=== PATIENT | female | born 1965 | race Caucasian/White ===

== ENCOUNTER 2019-04-09 15:10 | Emergency (ER) | payer MEDICAID, OTHER ==
--- NOTE | 2019-04-09 15:42 | EDM.PDOC ---
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 Has had good results with triamcinolone cream in the past. Has no other concerns currently. Onset: Gradual Onset Date: 04/07/19 Duration: Day(s):, Getting Worse Location: Reports: Upper Extremity, Left, Upper Extremity, Right Quality: Reports: Other (itching) Severity: Moderate Improves with: Reports: Medication Worsens with: Reports: Other (? horse grain that she soaks in water using bare hands.) Context: Reports: Other (see HPI) Associated Symptoms: Reports: No Other Symptoms Treatments CRUISE AGENT: Reports: Other (see below) (none) - Related Data Home Meds: Home Meds Estradiol 1 mg PO DAILY 04/09/19 [History] Levothyroxine [Synthroid] 50 mcg PO ACBREAKFAST 04/09/19 [History] Progesterone, Micronized [Progesterone] 100 mg PO DAILY 04/09/19 [History] Triamcinolone Acetonide [Triamcinolone Acetonide 0.1% Crm] 1 applic TOP BID PRN #80 gm 04/09/19 [Rx] Triamcinolone Acetonide [Triamcinolone Acetonide 0.1% Crm] 1 dose TOP ASDIRECTED 04/09/19 [History] Past Medical History [employer] DEVELOPER History: Reports: Musculoskeletal History: Reports: Arthritis Endocrine/Metabolic History: Reports: Hypothyroidism Dermatologic History: Reports: Other (See Below) - Past Surgical History Head Surgeries/Procedures: Reports: None Musculoskeletal Surgical History: Reports: Shoulder Surgery Dermatological Surgical History: Reports: None ED ROS GENERAL - Review of Systems Review Of Systems: ROS reveals no pertinent complaints other than HPI. Skin: Reports: Pruritis (hands/wrist bilaterally), Rash, Erythema (hands and wrist only) ED EXAM, SKIN/RASH Exam: See Below Exam Limited By: No Limitations General Appearance: Alert, WD/WN, No Apparent Distress Extremities: Other (rash both hands) Neurological: Alert, Oriented, CN II-XII Intact, Normal Cognition, No Motor/ Sensory Deficits Psychiatric: Normal Affect, Normal Mood Skin: Warm, Dry, Intact, Erythema, Rash (both hands/wrists). No: Normal Color, No Rash Location, Skin: Upper Extremity, Right, Upper Extremity, Left (left and right hands) Characteristics: Erythematous, Other (consistent with contact dermatitis.) Course - Vital Signs Last Recorded V/S: Last Vital Signs Temp 36.8 C 04/09/19 15:24 Pulse 62 04/09/19 15:24 Resp 16 04/09/19 15:24 BP 159/89 H 04/09/19 15:24 Pulse Ox 99 04/09/19 15:24 Departure - Departure Time of Disposition: 15:41 Disposition: Home, Self-Care 01 Condition: Good Clinical Impression: Contact dermatitis Qualifiers: Contact dermatitis type: allergic Contact dermatitis trigger: other trigger Qualified Code(s): L23.89 - Allergic contact dermatitis due to other agents; L23.8 - Allergic contact dermatitis due to other agents - Discharge Information *PRESCRIPTION DRUG MONITORING PROGRAM REVIEWED*: No *COPY OF PRESCRIPTION DRUG MONITORING REPORT IN PATIENT SETH: No Prescriptions: Triamcinolone Acetonide [Triamcinolone Acetonide 0.1% Crm] 1 applic TOP BID PRN #80 gm PRN Reason: Rash Referrals: PCP,None [Primary Care Provider] - Additional Instructions: Use triamcinolone as directed until the rash is gone. Use gloves when you are performing tasks you suspect may be sensitizing your skin. Recheck as needed. Diphenhydramine for itching, start with 50 mg every 6 hrs.
== END 2019-04-09 15:50 | disposition home or self-care (01) ==
LOC: JP.ED 15:10
DX: L23.89 Allergic contact dermatitis due to other agents (principal); E03.9 Hypothyroidism, unspecified; Z79.899 Other long term (current) drug therapy
CPT/HCPCS: 99282

== ENCOUNTER 2020-10-22 18:55 | Emergency (ER) | payer MEDICAID ==
--- NOTE | 2020-10-22 19:38 | EDM.PDOC ---
ED HPI GENERAL MEDICAL PROBLEM - General Chief Complaint: Skin Complaint Stated Complaint: CAT BITE AND SCRATCHES Time Seen by Provider: 10/22/20 19:25 Source of Information: Reports: Patient History Limitations: Reports: No Limitations - History of Present Illness INITIAL COMMENTS - FREE TEXT/NARRATIVE: 55-year-old female tried to get her young cat back in the house when the dog came barking near them, scared the cat and it scratched her arm and bit her several times on the hand. This happened earlier this afternoon. The cat is covered with shots and is domesticated. She just wants to avoid infection. She cleaned the wound thoroughly when she first got bit, she is starting to develop some stiffness and soreness. Onset: Sudden Duration: Hour(s): (4 hours ago) Location: Reports: Upper Extremity, Right Associated Symptoms: Reports: No Other Symptoms right hand Pain Score (Numeric/FACES): 2 - Related Data Allergies Allergy/AdvReac Type Severity Reaction Status Date / Time azithromycin Allergy Hives Verified 10/22/20 19:25 Sulfa (Sulfonamide Allergy Hives Verified 10/22/20 19:14 Antibiotics) Home Meds: Home Meds Levothyroxine [Synthroid] 50 mcg PO ACBREAKFAST 04/09/19 [History] Progesterone, Micronized [Progesterone] 100 mg PO BEDTIME 04/09/19 [History] Triamcinolone Acetonide [Triamcinolone Acetonide 0.1% Crm] 1 dose TOP ASDIRECTED 04/09/19 [History] estradioL [Estradiol] 1 mg PO BEDTIME 04/09/19 [History] Past Medical History HEENT History: Reports: Impaired Vision, Other (See Below) Other HEENT History: glasses Genitourinary History: Reports: Renal Disease, Other (See Below) Other Genitourinary History: polycystic kidney disease [employer]IPPER TRIMMER HAND History: Reports: Musculoskeletal History: Reports: Arthritis Endocrine/Metabolic History: Reports: Hypothyroidism Dermatologic History: Reports: Other (See Below) Other Dermatologic History: skin sensativity to latex and certain soaps - Infectious Disease History Infectious Disease History: Reports: Chicken Pox - Past Surgical History Head Surgeries/Procedures: Reports: None Musculoskeletal Surgical History: Reports: Shoulder Surgery Dermatological Surgical History: Reports: None Social & Family History - Tobacco Use Tobacco Use Status *Q: Never Tobacco User - Caffeine Use Caffeine Use: Reports: Coffee - Recreational Drug Use Recreational Drug Use: No ED ROS GENERAL - Review of Systems Review Of Systems: See Below Constitutional: Denies: Fever, Chills Respiratory: Denies: Shortness of Breath Cardiovascular: Denies: Chest Pain GI/Abdominal: Denies: Nausea, Vomiting Neurological: Reports: No Symptoms Psychiatric: Reports: No Symptoms ED EXAM, SKIN/RASH Exam: See Below Exam Limited By: No Limitations General Appearance: Alert, No Apparent Distress Respiratory/Chest: No Respiratory Distress Extremities: Other (Exam is otherwise limited to the right arm. Patient has several superficial abrasions and scratches on the right forearm, and a few small puncture wounds at the base of the small finger in the back of the hand. Distal CMS is intact, she has started developed some swelling of the small fing er) Neurological: Alert, Oriented Course - Vital Signs Last Recorded V/S: Last Vital Signs Temp 97.9 F 10/22/20 19:16 Pulse 63 10/22/20 19:16 Resp 16 10/22/20 19:16 BP 175/100 H 10/22/20 19:16 Pulse Ox 96 10/22/20 19:16 - Re-Assessments/Exams Free Text/Narrative Re-Assessment/Exam: 10/22/20 19:37 Patient will keep the wounds clean, and she will be placed on Augmentin 875 mg twice daily for at least 5 days. She will return if worsening despite treatment. Departure - Departure Time of Disposition: 19:42 Disposition: Home, Self-Care 01 Clinical Impression: Cat bite of forearm Qualifiers: Encounter type: initial encounter Laterality: right Qualified Code(s): S51.851A - Open bite of right forearm, initial encounter - Discharge Information Instructions: Animal Bite, Adult, [id number] Referrals: PCP,None [Primary Care Provider] - Forms: ED Department Discharge Care Plan Goals: Keep wounds clean while healing, take 1 Augmentin with food twice daily for at least 5 days, and ibuprofen or Tylenol will help with discomfort. Increase activity as tolerated and return anytime if worsening despite treatment such as increased redness, warmth, fever or other concerns. Sepsis Event Note (ED) - Evaluation Sepsis Screening Result: No Definite Risk - Focused Exam Vital Signs: Vital Signs Temp Pulse Resp BP Pulse Ox 10/22/20 19:16 97.9 F 63 16 175/100 H 96 10/22/20 19:06 97.9 F 63 16 175/100 H 96
== END 2020-10-22 19:48 | disposition home or self-care (01) ==
LOC: JP.ED 18:55
DX: S51.851A Open bite of right forearm, initial encounter (principal); E03.9 Hypothyroidism, unspecified; Z88.2 Allergy status to sulfonamides; Z88.1 Allergy status to other antibiotic agents; Z79.899 Other long term (current) drug therapy; W55.01XA Bitten by cat, initial encounter
CPT/HCPCS: 99283

== ENCOUNTER 2022-10-10 23:29 | Emergency (ER) | payer MEDICAID | END 2022-10-11 00:12 | disposition home or self-care (01) | LOC: JP.ED 23:29 | DX: R04.0 Epistaxis (principal); Z88.1 Allergy status to other antibiotic agents; Z88.2 Allergy status to sulfonamides; E03.9 Hypothyroidism, unspecified; Z79.899 Other long term (current) drug therapy; Z87.891 Personal history of nicotine dependence | CPT/HCPCS: 99282; 99284 ==